=== PATIENT | male | born 2000 | race Caucasian/White ===

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

== ENCOUNTER 2018-09-10 17:45 | Emergency (ER) | payer OTHER ==
[2018-09-10 18:05] VITALS: BP 123/67
--- NOTE | 2018-09-10 19:33 | UC ---
Cardiac HPI - HPI Summary HPI Summary: 18-year-old male comes to clinic today with a chief complaint of left sided chest pain. Pain is worse when he takes deep breath or coughs. Pain started after he went running 2 days ago. After he was running he coughed up quite a bit of sputum. Sputum was white. No fevers or chills. He is a smoker. Not short of breath at rest. No calf pain or swelling. No history of blood clots or any family history of blood clots. No known trauma. No rash. - History of Current Complaint Chief Complaint: UCBackPain Stated Complaint: BACK PAIN Time Seen by Provider: 09/10/18 18:21 Pain Intensity: 8 - Allergy/Home Medications Allergies/Adverse Reactions: Allergies Allergy/AdvReac Type Severity Reaction Status Date / Time No Known Allergies Allergy Verified 09/10/18 18:05 PMH/Surg Hx/FS Hx/Imm Hx Previously Healthy: Yes - Surgical History Surgical History: None - Family History Known Family History: Positive: None - Social History Alcohol Use: Occasionally Substance Use Type: Marijuana Substance Use Comment - Amount & Last Used: daily, "smoking a lot the last few weeks" Smoking Status (MU): Light Every Day Tobacco Smoker Type: Cigarettes Review of Systems Constitutional: Negative Skin: Negative Eyes: Negative ENT: Negative Respiratory: Negative Cardiovascular: Chest Pain - SEE HPI Gastrointestinal: Negative Motor: Negative Neurovascular: Negative Musculoskeletal: Negative Neurological: Negative Psychological: Negative Is Patient Immunocompromised?: No All Other Systems Reviewed And Are Negative: Yes Physical Exam Triage Information Reviewed: Yes Appearance: Well-Appearing, No Pain Distress, Well-Nourished Vital Signs: Initial Vital Signs Temp 98.0 F 09/10/18 17:59 Pulse 74 09/10/18 17:59 Resp 14 09/10/18 17:59 BP 123/67 09/10/18 17:59 Pulse Ox 98 09/10/18 17:59 Vital Signs Reviewed: Yes Eye Exam: Normal Eyes: Positive: Conjunctiva Clear Neck exam: Normal Neck: Positive: Supple Respiratory: Positive: Lungs clear, Normal breath sounds, No respiratory distress, Other: - Normal breath sounds both sides. Tender to palpation left lateral ribs. There is no rash. Cardiovascular: Positive: RRR Abdominal Exam: Normal Abdomen Description: Positive: Nontender, Soft. Negative: CVA Tenderness (R), CVA Tenderness (L) Bowel Sounds: Positive: Present Musculoskeletal Exam: Normal Musculoskeletal: Positive: Strength Intact, ROM Intact, No Edema, Other: - NO CALF TENDERNESS TO PALPATION Neurological Exam: Normal Neurological: Positive: Alert, Muscle Tone Normal Psychological Exam: Normal Psychological: Positive: Age Appropriate Behavior Skin Exam: Normal - Assessment/Plan Course Of Treatment: Review the x-ray with the patient. I did not see any acute process on the x-ray no pneumothorax. Radiologist reading is pending. The pain is pleuritic. It's most probably chest wall pain although it could be pleurisy. Patient is low risk for pulmonary embolus he has no pedal edema or calf tenderness. I did discuss the possible diagnosis of pulmonary embolus and that if he did not improve with treatment of ibuprofen that he needed to get re- checked. We will also treat him with azithromycin as he is a daily smoker. - Clinical Impression Provider Diagnoses: CHEST PAIN Discharge - Sign-Out/Discharge Documenting (check all that apply): Patient Departure All imaging exams completed and their final reports reviewed: No - Discharge Plan Condition: Stable Disposition: HOME Prescriptions: Azithromyxin PATIENCE (NF) [Z-Patience (Zithromax) 250 mg tabs #6] 2 tab PO .TODAY, THEN 1 DAILY #6 tab Ibuprofen TAB* [Motrin TAB* 600 MG] 600 mg PO Q6H PRN #20 tab PRN Reason: Pain Patient Education Materials: Chest Pain (ED) Referrals: [facility] [Outside] Additional Instructions: FOLLOW UP WITH YOUR DOCTOR IF NOT COMPLETELY IMPROVED. GO TO THE EMERGENCY DEPARTMENT FOR ANY WORSENING OF YOUR CONDITION; PAIN, SHORTNESS OF BREATH, YOU FEEL ILL OR QUESTIONS OR CONCERNS. - Billing Disposition and Condition Condition: STABLE Disposition: Home
[2018-09-10] MEDS ORDERED: Ibuprofen TAB* 600 MG PO ONE (19:35)
--- NOTE | 2018-09-11 07:56 | RAD ---
HISTORY: LEFT SIDE SPLINTING CHEST PAIN COMPARISONS: None VIEWS: 4: Frontal dual-energy and lateral views of the chest. FINDINGS: CARDIOMEDIASTINAL SILHOUETTE: The cardiomediastinal silhouette is normal. FRANSICO: The fransico are normal. PLEURA: The costophrenic angles are sharp. No pleural abnormalities are noted. LUNG PARENCHYMA: The lungs are clear. ABDOMEN: The upper abdomen is clear. There is no subphrenic gas. BONES AND SOFT TISSUES: No bone or soft tissue abnormalities are noted. OTHER: None. IMPRESSION: NO ACTIVE CARDIOPULMONARY DISEASE. R0
== END 2018-09-10 19:55 | disposition home or self-care (01) ==
LOC: UCEAST 17:45
DX: R07.89 Other chest pain (principal); F17.210 Nicotine dependence, cigarettes, uncomplicated
CPT/HCPCS: 71046; 99212; A9270-GY; G0463

== ENCOUNTER 2019-08-26 19:25 | Emergency (ER) | payer OTHER | END 2019-08-26 20:00 | disposition left against medical advice (07) | LOC: UCEAST 19:25 | DX: Z53.21 Procedure and treatment not carried out due to patient leaving prior to being seen by health care provider (principal) ==

== ENCOUNTER 2020-02-03 12:05 | Inpatient (IN) | payer OTHER ==
--- NOTE | 2020-02-03 12:10 | ED ---
Psychiatric Complaint - HPI Summary HPI Summary: 19 y/o M brought in by law enforcement on after having an argument with his biological father today. Patient lives with his father. They got into an argument today and patient started having homicidal ideation per nurse. He has never been here before for psychiatric evaluation. He denies PMHx. Medications reviewed. FHx manic depression. No FHx hypertension, diabetes, cardiac disease. Current smoker. Admits to ETOH and recreational drug use but he reports less now than in the past. - History Of Current Complaint Time Seen by Provider: 02/03/20 12:07 Hx Obtained From: Patient Onset/Duration: Lasting Hours, Still Present Timing: Constant Aggravating Factor(s): Nothing Alleviating Factor(s): Nothing Has Homicidal: Reports: Thoughts - Allergies/Home Medications Allergies/Adverse Reactions: Allergies Allergy/AdvReac Type Severity Reaction Status Date / Time No Known Allergies Allergy Verified 09/10/18 18:05 Home Medications: Home Medications NK [No Home Medications Reported] 02/03/20 [History Confirmed 02/03/20] PMH/Surg Hx/FS Hx/Imm Hx Endocrine/Hematology History: Denies: Hx Diabetes Cardiovascular History: Denies: Hx Hypertension Respiratory History: Denies: Hx Asthma, Hx Chronic Obstructive Pulmonary Disease (COPD) - Surgical History Surgical History: None Infectious Disease History: Denies: Hx Hepatitis, History Other Infectious Disease - Family History Known Family History: Positive: Other - manic depression Negative: Cardiac Disease, Hypertension, Diabetes - Social History Alcohol Use: Occasionally Hx Substance Use: Yes Substance Use Type: Reports: Marijuana Hx Tobacco Use: Yes Smoking Status (MU): Light Every Day Tobacco Smoker Type: Cigarettes Review of Systems Negative: Fever Positive: Other - HI All Other Systems Reviewed And Are Negative: Yes Physical Exam - Summary Physical Exam Summary: General: Well appearing, no distress HEENT: PERRL Cardiovascular: Skin is well perfused Pulmonary: No respiratory distress, no tachypnea Abdomen: Non-distended Skin: Warm, pink, dry MSK: No edema Psych: Normal affect Neuro: A&Ox3 Triage Information Reviewed: Yes Vital Signs Reviewed: Yes Procedures - Sedation Patient Received Moderate/Deep Sedation with Procedure: No Diagnostics - Laboratory Result Diagrams: 02/03/20 13:37 02/03/20 13:37 Lab Statement: Any lab studies that have been ordered have been reviewed, and results considered in the medical decision making process. Re-Evaluation - Re-Evaluation First Eval Re-Evaluation Time: 12:14 - patient is medically cleared for psychiatric evaluation Course/Dx - Course Course Of Treatment: Patient taking for mental health clearance for HI. Patient has no active medical conditions warrantly further w/u, vital signs are stable. Patient placed in mental health gown and placed on observation. We' ll obtain mental health evaluation. - Differential Dx/Clinical Impression Provider Diagnosis: Psychosis - Physician Notifications Discussed Care Of Patient With: Sawyer Bhatia - Recommends admission Time Discussed With Above Provider: 15:05 Instructed by Provider To: Admit As Inpatient Discharge ED - Sign-Out/Discharge Documenting (check all that apply): Patient Departure - Discharge Plan Condition: Stable Disposition: [facility]YCHIATRIC FACILITY-[facility] [place] Referrals: No Primary Care Phys,[facility] [Medical Doctor] - - Billing Disposition and Condition Condition: STABLE Disposition: Psychiatric Facility [facility] - Attestation Statements Document Initiated by Scribe: Yes Documenting Scribe: Alannah Miguel Provider For Whom Stephan is Documenting (Include Credential): Kendrick Aguilar MD Scribe Attestation: Alannah Rojas, scribed for Kendrick Aguilar MD on 02/03/20 at 1510. Scribe Documentation Reviewed: Yes Provider Attestation: The documentation as recorded by the Alannah dunbar accurately reflects the service I personally performed and the decisions made by Kendrick serna MD Status of Scribe Document: Viewed
[2020-02-03 13:56] LABS: ABS Eosinophils 0.1 10^3/ul (0-0.6); ABS Lymphocytes 1.9 10^3/ul (1.0-4.8); ABS Monocytes 0.6 10^3/ul (0-0.8); ABS Neutrophils 4.2 10^3/ul (1.5-7.7); Eosinophil % 1.1 %; Hematocrit 50 % (42-52); Hemoglobin 17.1 g/dL (14.0-18.0); Lymphocyte % 27.5 %; Mean Corpuscular HGB Conc 34 g/dL (31-36); Mean Corpuscular Hemoglobin 32 pg (27-31); Mean Corpuscular Volume 93 fL (80-94); Mean Platelet Volume 6.6 fL (7.4-10.4); Nucleated Red Blood Cells % 0.1; Platelet Count 309 10^3/uL (150-450); Red Blood Count 5.32 10^6 /uL (4.18-5.48); Red Cell Distribution Width 13 % (10-15); White Blood Count 6.7 10^3/uL (3.5-10.8)
[2020-02-03 14:11] LABS: ALT 14 U/L (7-52); AST 25 U/L (13-39); Albumin 5.3 g/dL (3.2-5.2); Albumin/Globulin Ratio 1.8 (1-3); Alkaline Phosphatase 91 U/L (34-104); Anion Gap 9 mmol/L (2-11); BUN/Creatinine Ratio 11.7 (8-20); Blood Urea Nitrogen 12 mg/dL (6-24); CO2 Carbon Dioxide 26 mmol/L (22-32); Calcium 10.4 mg/dL (8.6-10.3); Chloride 101 mmol/L (101-111); EGFR African American 110.3 (>60); EGFR Non-African American 91.2 (>60); Globulin 2.9 g/dL (2-4); Glucose 91 mg/dL (70-100); Potassium 3.9 mmol/L (3.5-5.0); Sodium 136 mmol/L (135-145); Total Protein 8.2 g/dL (6.4-8.9)
[2020-02-03 14:22] LABS: Acetaminophen < 15 mcg/mL; Alcohol < 10 mg/dL (<10); Salicylate < 2.50 mg/dL (<30)
[2020-02-03 14:38] LABS: TSH (Thyroid Stimulating Horm) 2.37 mcIU/mL (0.34-5.60)
[2020-02-03 15:05] LABS: Urine Appearance Clear; Urine Bilirubin Negative (Negative); Urine Blood 1+ (Negative); Urine Color Yellow; Urine Glucose Negative (Negative); Urine Ketones 1+ (Negative); Urine Nitrite Negative (Negative); Urine Protein Negative (Negative); Urine Urobilinogen Negative (Negative)
[2020-02-03 15:07] LABS: Urine Bacteria Absent (Absent); Urine Red Blood Cell 1+(3-5/hpf) (Absent); Urine Squamous Epithelial Cell Present (Absent); Urine White Blood Cell Absent (Absent)
[2020-02-03 15:16] LABS: Urine Benzodiazepine Screen None Detected (None Detect); Urine Opiates Screen None Detected (None Detect)
[2020-02-03] MEDS ORDERED: Al Hydrox/Mg Hydrox/Simet LIQ* 30 ML UDC PO PRN (17:36)
[2020-02-03] MEDS ORDERED: Acetaminophen TAB* 325 MG PO PRN (17:36)
[2020-02-03] MEDS ORDERED: Nicotine* 2MG (FRUIT FLAVOR) GUM PO PRN (17:39)
[2020-02-03] MEDS ORDERED: chlorproMAZINE TAB* 50 MG PO PRN (18:41)
[2020-02-04] MEDS: Nicotine Patch Removal NOTE PATCH OFF SCH (00:11)
--- NOTE | 2020-02-04 09:48 | HP ---
H&P (Free Text) History and Physical: Justification for admission: Immediate Safety. CC " People are messing with me" The patient was brought to [facility] by police after he got into an argument with his father and expressed homicidal ideation. The patient reported that he wants to hurt people that are against him and made threats to kill his father. He reported that his father has been messing with him and putting things in his gas tank and when he went to work people all turned against him. He expressed that he wanted to fight them for messing with him. He called the police and asked police to fingerprint the gas tank to find out who is messing with him. He expressed that if he doesnt leave the hospital his father will rape young girls. He reported last methamphetamine use to be on Saturday. He reported that his father is a criminal and messes with his head. He reported that the government is purposely planing to sabotaged him and spoke about everything he does the government wants to get involved and make things up about him. Patient expressed that he refuses to take medications because they will mess with his head and he wont be able to control himself. He said that the only that helps him is snorting methamphetamine. Per his father the patient started to show bizarre behavioral changes since Saturday and has stayed up calling people in the middle at night and missed several days of work. He denied access to firearms or stockpiles of medications. He denied changes in his sleep or appetite. The patient denied suicidal ideation intent or plan. The patient denied visual hallucinations. He reported hearing voices that people were against him and he noted that this was his own internal dialogue. He denied having intrusive thoughts, having sexual urges or arousal surrounding young children. Psychosis Patient endorsed hearing things that other people do not hear. He believes others are out to get him and playing tricks on him. He expressed that he will attack people that are against him and put things in his gas tank and because there was duct tape near his tire he believes that someone dismantled his car because there are against him. Depression He denied feeling depressed. Denied having diminished interests which were found to be enjoyable in the past. Denied having crying spells , feeling empty inside, feelings of hopelessness , and worthlessness. Denied unintentional weight loss and appetite. Denied interruption of sleep , or feeling tired throughout the day. Denied loss of energy or lack of motivation to complete tasks. Denied overwhelming feelings of guilt or decreased concentration. Denied recurrent thoughts of . Denied thoughts that they would be better off . Anxiety Denied having symptoms of anxiety such as having times where heart feels that it is beating out of chest , sweaty palms, or shallow breathing. Denied having uncomfortable or intrusive thoughts. Denied feeling restless, high strung, or worrying too much most of the time. Bipolar Denied symptoms of rolo such as having many ideas at once. Denied increased talkativeness where no one can interrupt. Denied feeling irritable most of the time while having an persistent abundance of energy most of the day without the use of energy drinks, stimulants, or recreational drug use. Denied an increase in intensity in goal directed activities. Denied having the decreased need to sleep for days , having prolonged elevated mood , or feeling on top of the world. Denied impulsive risky sexual encounters. Denied spending money recklessly , going on spending sprees wiping out savings. Denied impulsively traveling out of town or country, having super cobb, and unrealistic wealth or fame. Phobias: Patient denied having excessive fear of a particular thing or situation. Eating disorders: Patient denied having excessive eating habits or feelings of guilt after eating. Denied repeated episodes of self induced vomiting after eating. PTSD Denied flashbacks, nightmares and avoidance of a prior traumatic event. PAST PSYCHIATRIC HISTORY: Prior Diagnosis : Stimulant use disorder amphetamine type , Tobacco use disorder. History of past Psychiatric Hospitalizations: Denied prior psychiatric admission. History of past suicide/homicide attempts : 1 past suicide attempt at age 12 where he attempting to shoot himself, denied repeated self injurious behavior. He denied having a history of assaulting others and father confirmed this. Outpatient follow-up: [facility] Medications: He denied past trials of medications Guardianship: None. FAMILY HISTORY: - Suicide: Denied family history of suicide. - Mental illness: Step- Brother has schizophrenia - Substance abuse: Denied substance abuse among family members. SUBSTANCE ABUSE HISTORY: - EtOH: Denied recent use. - Tobacco: Smokes 3 cigarettes a day - Cannabis: Uses occasionally, reported last use was one week ago - Heroin: Denied - Cocaine: Denied - Methamphetamine started using at age 12 preferred route via intranasal. Per patient he uses twice a week and last use was on Saturday. - Substance abuse treatment: Currently on probation and in [facility]. SOCIAL HISTORY: - Denied a history of childhood physical and or sexual abuse Born in [place] and raised by both parents. Parents a year ago and his mother lives in [place]. 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 - Relationship: Single and has no children. - Legal history: Currently on probation for charges involving sex with a minor currently has a ankle monitor. - service history: Denied PAST MEDICAL HISTORY: Denied heart disease, diabetes, cancer and/ or other medical conditions. - Allergies: Denied drug or other allergies. Physical Exam: Please see ED note Mental Status Exam on Admission APPEARANCE : 19 year old who appears stated age. Patient appears to have poor hygiene and grooming. BEHAVIOR: Irritable EYE CONTACT: Fair PSYCHOMOTOR ACTIVITY: No psychomotor agitation or retardation. MOVEMENTS: No abnormal movements observed. SPEECH : Normal rate, rhythm, volume and tone. MOOD : "Mad " AFFECT : Type is angry Range is restricted Mood Incongruent THOUGHT PROCESS: Formulated and organized in a linear manner. THOUGHT CONTENT: Paranoid delusions PERCEPTION: Auditory hallucinations. SUICIDALITY Denied suicidal ideation, intent or plan. HOMICIDALITY Homicidal ideation with intent to kill his father. Insight/judgment: Poor insight and judgment ORIENTATION: Oriented to self, location, and time. Diagnosis on Admission: Unspecified Psychosis, Stimulant use disorder amphetamine type , Tobacco use disorder. Assessment: 19 year old male with a history of methamphetamine abuse presented to the emergency department by police paranoid with homicidal ideation toward his father. Plan #Admit to [facility], Q15 minute observation. Start regular diet. Encourage participation in group therapy and psychoeducation #Patient evaluated in ED and was determined by the emergency room Physician to be medically fit for admission to the [facility]. # Justification for Admission: For immediate safety per outlined in the [place] Mental Hygiene Code. # The patient requires psychiatric inpatient admission at this time to assure safety, receive treatment and work toward stabilization. # Labs ordered: CBC, CMP, UDS, TSH, HBA1c, TSH, Toxicology screen, Urine analysis, and lipid profile. # Plan to monitor for metabolic changes by weight, HBA1c, glucose, and lipid panel # EKG ordered for risk of QT prolongation of antipsychotic medication. # Will offer and order zyprexa 10mg qhs. # Obtained collateral information from his father Grabiel [phone], confirmed no access to firearms # Collaboration with [employer] Zakiya Fonseca # Father informed of homicidal threat. # Additional substance Abuse resources offered and declined Tobacco use disorder: nicotine supplement offered and put in place. #Goals before discharge include: Psychiatric Stabilization Tentative Discharge: Pending hospital course and response to treatment The risks, benefits, and alternative treatment options were discussed as well as the risks of refusing treatment. After this discussion and an acknowledgement of this understanding was made. A risk/ benefit assessment of treatment was considered and discussed with the patient. When comparing the risks of treatment with the dangers of not receiving treatment, the benefits of treatment outweigh the treatment risks at this time. Risks of , allergy, suicidal ideation, behavioral changes, dystonia, electrolyte imbalances, movement disorders, cardiac conduction changes, metabolic risks and NMS were among some of the risks discussed. Sodium 136 mmol/L (135-145) 02/03/20 13:37 Potassium 3.9 mmol/L (3.5-5.0) 02/03/20 13:37 BUN 12 mg/dL (6-24) 02/03/20 13:37 Creatinine 1.03 mg/dL (0.67-1.17) 02/03/20 13:37 Calcium 10.4 mg/dL (8.6-10.3) H 02/03/20 13:37 AST 25 U/L (13-39) 02/03/20 13:37 ALT 14 U/L (7-52) 02/03/20 13:37 Acetaminophen (Tylenol Tab*) 650 mg PO Q4H PRN PRN Reason: PAIN or TEMP > 101 F Al Hydrox/Mg Hydrox/Simethicone (Maalox Plus*) 30 ml PO Q4H PRN PRN Reason: INDIGESTION Chlorpromazine HCl (Thorazine Tab*) 50 mg PO Q6H PRN PRN Reason: AGITATION Multivitamins (Theragran Tab*) 1 tab PO DAILY [facility] Last Admin: 02/04/20 11:09 Dose: Not Given Nicotine (Nicotine Patch 21 Mg/24 Hr*) 1 patch TRANSDERM DAILY [facility] Last Admin: 02/04/20 11:51 Dose: Not Given Nicotine Polacrilex (Nicotine Gum*) 2 mg PO Q2H PRN PRN Reason: CRAVINGS Olanzapine (Zyprexa Tab*) 10 mg PO BEDTIME [facility] Pharmacy Profile Note (Nicotine Patch Removal Note*) 1 note PATCH OFF 2099 [facility] Last Admin: 02/04/20 00:11 Dose: Not Given
[2020-02-04] MEDS: Vitamin THERAPEUTIC TAB PO SCH (11:09)
[2020-02-04] MEDS: Nicotine PATCH 21 MG/24 HR* PATCH TRANSDERM SCH (11:51)
[2020-02-05] MEDS: OLANzapine TAB* 10 MG PO SCH (00:43)
[2020-02-05] MEDS: Nicotine Patch Removal NOTE PATCH OFF SCH ×2 (00:43→22:05)
[2020-02-05] MEDS ORDERED: chlorproMAZINE TAB* 100 MG ONE ×2 (09:01→10:00)
[2020-02-05] MEDS: Vitamin THERAPEUTIC TAB PO SCH (09:17)
[2020-02-05] MEDS: Nicotine PATCH 21 MG/24 HR* PATCH TRANSDERM SCH (09:17)
[2020-02-05] MEDS ORDERED: chlorproMAZINE INJ* 25 MG/ML 2 ML (50 MG) ONE (10:00)
[2020-02-05] MEDS ORDERED: chlorproMAZINE INJ* 25 MG/ML 2 ML (50 MG) IM ONE (10:00)
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
[2020-02-06] MEDS: Nicotine PATCH 21 MG/24 HR* PATCH TRANSDERM SCH (10:03)
[2020-02-06] MEDS: Vitamin THERAPEUTIC TAB PO SCH (10:03)
--- NOTE | 2020-02-06 16:43 | PN ---
Subjective - Subjective Service Type: 45063 Hosp care 25 min moderate complexity Subjective: The patient a 19 year old male with history of Methamphetamine use disorder and homicidal ideation towards his father. He is seen today for medication management and follow up. He described his mood as good. He denied hopelessness and worthlessness. He denied current suicidal or homicidal ideation. No evidence of delusions or psychosis. He appears to be less paranoid.No behavioral issues. He is continued on [id number] observation. He is compliant with medications. No constipations.The patient punched the wall yesterday, he was supposed to have had an x-rayof the hand but was not done. Today he denied any pain in the right hand and there was on swelling or restriction in movement of the right hand. The patient does not have acute medical problems. Objective - General Observations Appearance: Well Groomed Appears Stated Age: Yes Stature: WNL Posture: WNL Eye Contact: Average Behavior/Activity: WNL - Interaction Observations Attitude Towards Examiner: Cooperative Stated Mood: Euthymic Speech Pattern/Tone: Appropriate Thought Process: Coherent Perception: WNL Thought Content: WNL Hallucination Type: None Delusion Type: None - Cognitive Function Orientation: A&O x 4 Cognition: WNL Estimated Intelligence: Normal Insight: WNL Judgment Within Normal Limits: Yes - Medication Compliance Cooperative with Inpatient Medication Regimen: Yes - Group Participation Participates in Group Activities: No - He denied current suicidal or homicdal ideation Assessment - Assessment Clinical Impression: 19 year old male with a history of methamphetamine abuse presented to the emergency department by police paranoid with homicidal ideation toward his father. BSU: Problem List - Patient Problems (1) Methamphetamine-induced psychotic disorder Current Visit: Yes Status: Acute Code(s): F15.959 - OTH STIMULANT USE, UNSP W STIM-INDUCE PSYCH DISORDER, UNSP SNOMED Code(s): 78990213432112022 Plan - Plan Treatment Plan: Name: YULIANA SEAMAN Birthdate: 2000 [id number] #Q15 minute observation. # The patient requires psychiatric inpatient admission at this time to assure safety, receive treatment and work toward stabilization. # Patient is refusing proposed treatment of zyprexa 10mg qhs. # Obtained collateral information from his father Grabiel [phone], confirmed no access to firearms # Collaboration with Sm[employer] Zakiya Fonseca # TOO will be completed #Safe ACT completed # X-ray right hand from punching wall # Additional substance Abuse resources offered and declined Tobacco use disorder: nicotine supplement offered and put in place. #Goals before discharge include: Psychiatric Stabilization Medications: Current Medications Acetaminophen (Tylenol Tab*) 650 mg PO Q4H PRN PRN Reason: PAIN or TEMP > 101 F Al Hydrox/Mg Hydrox/Simethicone (Maalox Plus*) 30 ml PO Q4H PRN PRN Reason: INDIGESTION Chlorpromazine HCl (Thorazine Tab*) 50 mg PO Q6H PRN PRN Reason: AGITATION Multivitamins (Theragran Tab*) 1 tab PO DAILY [facility] Last Admin: 02/06/20 10:03 Dose: Not Given Nicotine (Nicotine Patch 21 Mg/24 Hr*) 1 patch TRANSDERM DAILY [facility] Last Admin: 02/06/20 10:03 Dose: Not Given Nicotine Polacrilex (Nicotine Gum*) 2 mg PO Q2H PRN PRN Reason: CRAVINGS Olanzapine (Zyprexa Tab*) 10 mg PO BEDTIME [facility] Last Admin: 02/06/20 00:00 Dose: Not Given Pharmacy Profile Note (Nicotine Patch Removal Note*) 1 note PATCH OFF 2100 [facility] Last Admin: 02/05/20 22:05 Dose: Not Given - Discharge Plan Additional Comments: Plan Continue current medication management
[2020-02-06] MEDS: Nicotine Patch Removal NOTE PATCH OFF SCH (21:00)
[2020-02-06] MEDS: OLANzapine TAB* 10 MG PO SCH ×2 (22:46)
[2020-02-07] MEDS: Nicotine PATCH 21 MG/24 HR* PATCH TRANSDERM SCH (08:36)
[2020-02-07] MEDS: Vitamin THERAPEUTIC TAB PO SCH (08:36)
[2020-02-07] MEDS: OLANzapine TAB* 10 MG PO SCH (22:23)
[2020-02-07] MEDS: Nicotine Patch Removal NOTE PATCH OFF SCH (22:24)
[2020-02-08] MEDS: Nicotine PATCH 21 MG/24 HR* PATCH TRANSDERM SCH (10:36)
[2020-02-08] MEDS: Vitamin THERAPEUTIC TAB PO SCH (10:37)
--- NOTE | 2020-02-08 10:44 | PN ---
Subjective - Subjective Date of Service: 02/08/20 Service Type: [id number] Hosp care 35 min high complexity Subjective: Nursing Report: Patient was visible on unit, no behavioral incidents. Slept ~ 6hrs overnight. He is attending some group activities. CC: " I was not in my right mind" This patient was seen and evaluated today. He reported he was not thinking right last Saturday and expressed that he said and did things he would not have done. He denied feeling that people were following him or out to get him. Took medications overnight. He reported having adequate appetite and sleep. The patient reports attending day groups. Per nursing no behavioral issues or overnight events reported. Patient reported that he is tolerating medications without side effects. Objective - General Observations Appearance: Neat Appears Stated Age: Yes Stature: WNL Posture: WNL Eye Contact: Average Behavior/Activity: WNL - Interaction Observations Attitude Towards Examiner: Cooperative Stated Mood: Euthymic Affect: Restricted Speech Pattern/Tone: Normal Volume Thought Process: Goal Directed Perception: WNL Thought Content: WNL Hallucination Type: None Delusion Type: None - Cognitive Function Orientation: A&O x 4 Level of Consciousness: Awake - Medication Compliance Cooperative with Inpatient Medication Regimen: Yes - Group Participation Participates in Group Activities: Partial Assessment - Assessment Merits Inpatient Hospitalization: For Immediate Safety Clinical Impression: 19 year old male with a history of methamphetamine abuse presented to the emergency department by police paranoid with homicidal ideation toward his father. Plan - Plan Treatment Plan: Name: YULIANA SEAMAN Birthdate: 2000 [id number] #Q15 minute observation. # The patient requires psychiatric inpatient admission at this time to assure safety, receive treatment and work toward stabilization. # Patient is refusing proposed treatment of zyprexa 10mg qhs. # Obtained collateral information from his father Grabiel [phone], confirmed no access to firearms # Collaboration with [employer] Zakiya Fonseca # TOO will be completed #Safe ACT completed # Additional substance Abuse resources offered and declined Tobacco use disorder: nicotine supplement offered and put in place. #Goals before discharge include: Psychiatric Stabilization # Tentative discharge - Saturday Continued Medication Management: Continue Outpt Medication Medications: Current Medications Acetaminophen (Tylenol Tab*) 650 mg PO Q4H PRN PRN Reason: PAIN or TEMP > 101 F Al Hydrox/Mg Hydrox/Simethicone (Maalox Plus*) 30 ml PO Q4H PRN PRN Reason: INDIGESTION Chlorpromazine HCl (Thorazine Tab*) 50 mg PO Q6H PRN PRN Reason: AGITATION Multivitamins (Theragran Tab*) 1 tab PO DAILY [facility] Last Admin: 02/08/20 10:37 Dose: Not Given Nicotine (Nicotine Patch 21 Mg/24 Hr*) 1 patch TRANSDERM DAILY [facility] Last Admin: 02/08/20 10:36 Dose: Not Given Nicotine Polacrilex (Nicotine Gum*) 2 mg PO Q2H PRN PRN Reason: CRAVINGS Olanzapine (Zyprexa Tab*) 10 mg PO BEDTIME [facility] Last Admin: 02/07/20 22:23 Dose: 10 mg Pharmacy Profile Note (Nicotine Patch Removal Note*) 1 note PATCH OFF 2100 [facility] Last Admin: 02/07/20 22:24 Dose: Not Given - Discharge Plan Discharge Plan: Inpatient Hospitalization
[2020-02-08] MEDS: OLANzapine TAB* 10 MG PO SCH (19:49)
[2020-02-08] MEDS: Nicotine Patch Removal NOTE PATCH OFF SCH (22:17)
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
[2020-02-09 10:46] VITALS: BP 102/76
[2020-02-09] MEDS: Vitamin THERAPEUTIC TAB PO SCH (13:30)
[2020-02-09] MEDS: Nicotine PATCH 21 MG/24 HR* PATCH TRANSDERM SCH (13:30)
== END 2020-02-09 13:15 | disposition home or self-care (01) | DRG 751 ==
LOC: ED 12:05 → BSU 17:30
PROVIDERS: ADMIT Psychiatry & Neurology Psychiatry; ATTEND Psychiatry & Neurology Psychiatry
DX: F23 Brief psychotic disorder (principal); F15.90 Other stimulant use, unspecified, uncomplicated; F17.210 Nicotine dependence, cigarettes, uncomplicated; R45.850 Homicidal ideations
CPT/HCPCS: 36415; 80053; 80307; 80320; 80329; 81003; 81015; 84443; 85025; 99222; 99232; 99233; 99284; A9270-GY; G0480

== ENCOUNTER 2022-03-29 13:46 | Inpatient (IN) ==
[2022-03-29 14:50] LABS: Urine Appearance Clear; Urine Bilirubin Negative (Negative); Urine Blood 1+ (Negative); Urine Color Amber; Urine Glucose Negative (Negative); Urine Ketones Negative (Negative); Urine Nitrite Negative (Negative); Urine Protein 2+(100 mg/dL) (Negative); Urine Urobilinogen Negative (Negative)
[2022-03-29 14:56] LABS: ABS Eosinophils 0.3 10^3/ul (0-0.6); ABS Lymphocytes 1.7 10^3/ul (1.0-4.8); ABS Monocytes 0.5 10^3/ul (0-0.8); ABS Neutrophils 2.5 10^3/ul (1.5-7.7); Eosinophil % 5.4 %; Hematocrit 45 % (42-52); Hemoglobin 15.5 g/dL (14.0-18.0); Lymphocyte % 34.5 %; Mean Corpuscular HGB Conc 34 g/dL (31-36); Mean Corpuscular Hemoglobin 32 pg (27-31); Mean Corpuscular Volume 92 fL (80-94); Mean Platelet Volume 6.5 fL (7.4-10.4); Nucleated Red Blood Cells % 0.1; Platelet Count 288 10^3/uL (150-450); Red Blood Count 4.88 10^6 /uL (4.18-5.48); Red Cell Distribution Width 13 % (10-15); White Blood Count 4.9 10^3/uL (3.5-10.8)
[2022-03-29 14:56] LABS: Urine Bacteria Absent (Absent); Urine Red Blood Cell 2+(6-10/hpf) (Absent); Urine White Blood Cell Absent (Absent)
[2022-03-29 15:33] LABS: Urine Benzodiazepine Screen None Detected (None Detect); Urine Cannabinoids Screen Presumptive Positive (None Detect); Urine Opiates Screen None Detected (None Detect)
[2022-03-29 16:22] LABS: ALT 16 U/L (7-52); AST 26 U/L (13-39); Acetaminophen < 15 mcg/mL; Albumin 4.9 g/dL (3.2-5.2); Albumin/Globulin Ratio 1.9 (1-3); Alcohol, S < 13 mg/dL (<13); Alkaline Phosphatase 72 U/L (35-149); Anion Gap 5 mmol/L (2-11); Blood Urea Nitrogen 12 mg/dL (6-24); CO2 Carbon Dioxide 29 mmol/L (22-32); Calcium 9.7 mg/dL (8.6-10.3); Chloride 105 mmol/L (101-111); Globulin 2.6 g/dL (2-4); Glucose 88 mg/dL (70-100); Potassium 4.3 mmol/L (3.5-5.0); Salicylate < 2.50 mg/dL (<30); Sodium 139 mmol/L (135-145); Total Protein 7.5 g/dL (6.4-8.9); eGFR CKD-EPI 95.7 (>60)
[2022-03-29 16:30] LABS: TSH Ultra Thyroid Stim Horm 0.84 mcIU/mL (0.34-5.60)
[2022-03-29] MEDS ORDERED: Haloperidol 5 mg/ml SDV IV/IM 5 MG/ML AMP IM ONE (18:55)
[2022-03-29] MEDS ORDERED: diazePAM INJ CARPUJECT 5 MG/ML SYRINGE IM ONE (18:55)
[2022-03-29] MEDS ORDERED: Al Hydrox/Mg Hydrox/Simet LIQ 30 ML UDC PO PRN (22:57)
[2022-03-29] MEDS ORDERED: risperiDONE-M 1 mg Oradis TAB PO PRN (22:58)
[2022-03-30 08:31] LABS: HDL Cholesterol 55.2 mg/dL
[2022-03-30] MEDS ORDERED: Nicotine GUM 4MG FRUIT FLAVOR PO PRN (08:50)
[2022-03-30] MEDS: Vitamin THERAPEUTIC TAB PO SCH (12:55)
[2022-03-30] MEDS: Nicotine PATCH 21 MG/24 HR PATCH TRANSDERM SCH (14:14)
[2022-03-31] MEDS: Nicotine PATCH 21 MG/24 HR PATCH TRANSDERM SCH (10:04)
[2022-03-31] MEDS: Vitamin THERAPEUTIC TAB PO SCH (10:04)
[2022-04-01] MEDS: Nicotine PATCH 21 MG/24 HR PATCH TRANSDERM SCH (10:10)
[2022-04-01] MEDS: Vitamin THERAPEUTIC TAB PO SCH (10:10)
[2022-04-02] MEDS: Vitamin THERAPEUTIC TAB PO SCH (10:55)
[2022-04-02] MEDS: Nicotine PATCH 21 MG/24 HR PATCH TRANSDERM SCH (10:55)
[2022-04-03] MEDS: Nicotine PATCH 21 MG/24 HR PATCH TRANSDERM SCH (10:31)
[2022-04-03] MEDS: Vitamin THERAPEUTIC TAB PO SCH (10:31)
[2022-04-04] MEDS: Nicotine PATCH 21 MG/24 HR PATCH TRANSDERM SCH (08:53)
[2022-04-04] MEDS: Vitamin THERAPEUTIC TAB PO SCH (08:53)
[2022-04-04 09:09] VITALS: BP 105/55
== END 2022-04-04 12:10 | disposition home or self-care (01) | DRG 776 ==
LOC: ED 13:46 → EDHOLD 22:41 → BSU 23:14
PROVIDERS: ADMIT Psychiatry & Neurology Psychiatry; ATTEND Psychiatry & Neurology Psychiatry

== ENCOUNTER 2022-04-13 15:21 | Inpatient (IN) ==
[2022-04-13 16:03] LABS: ABS Eosinophils 0.2 10^3/ul (0-0.6); ABS Lymphocytes 2.2 10^3/ul (1.0-4.8); ABS Monocytes 0.4 10^3/ul (0-0.8); ABS Neutrophils 2.3 10^3/ul (1.5-7.7); Hematocrit 41 % (42-52); Hemoglobin 13.8 g/dL (14.0-18.0); Mean Corpuscular HGB Conc 34 g/dL (31-36); Mean Corpuscular Hemoglobin 31 pg (27-31); Mean Corpuscular Volume 92 fL (80-94); Mean Platelet Volume 6.6 fL (7.4-10.4); Platelet Count 262 10^3/uL (150-450); Red Blood Count 4.41 10^6 /uL (4.18-5.48); Red Cell Distribution Width 13 % (10-15); White Blood Count 5.2 10^3/uL (3.5-10.8)
[2022-04-13 16:35] LABS: Urine Benzodiazepine Screen None Detected (None Detect); Urine Cannabinoids Screen Presumptive Positive (None Detect); Urine Opiates Screen None Detected (None Detect)
[2022-04-13 16:46] LABS: ALT 13 U/L (7-52); AST 20 U/L (13-39); Acetaminophen < 15 mcg/mL; Albumin 4.6 g/dL (3.2-5.2); Albumin/Globulin Ratio 2.2 (1-3); Alcohol, S < 13 mg/dL (<13); Alkaline Phosphatase 61 U/L (35-149); Anion Gap 4 mmol/L (2-11); Blood Urea Nitrogen 14 mg/dL (6-24); CO2 Carbon Dioxide 28 mmol/L (22-32); Calcium 9.3 mg/dL (8.6-10.3); Chloride 107 mmol/L (101-111); Globulin 2.1 g/dL (2-4); Glucose 89 mg/dL (70-100); Potassium 4.1 mmol/L (3.5-5.0); Salicylate < 2.50 mg/dL (<30); Sodium 139 mmol/L (135-145); Total Protein 6.7 g/dL (6.4-8.9); eGFR CKD-EPI 101.1 (>60)
[2022-04-13 16:59] LABS: TSH Ultra Thyroid Stim Horm 1.67 mcIU/mL (0.34-5.60)
[2022-04-13 17:02] LABS: Urine Appearance Turbid; Urine Bilirubin Negative (Negative); Urine Blood Negative (Negative); Urine Color Yellow; Urine Glucose Negative (Negative); Urine Ketones Negative (Negative); Urine Nitrite Negative (Negative); Urine Protein 1+(30 mg/dL) (Negative); Urine Specific Gravity 1.017 (1.002-1.030); Urine Urobilinogen Negative (Negative)
[2022-04-13 17:08] LABS: Urine Bacteria 1+ (Absent); Urine Red Blood Cell 1+(3-5/hpf) (Absent); Urine Renal Epithelial Cells Present (Absent); Urine White Blood Cell Absent (Absent)
[2022-04-14] MEDS ORDERED: Al Hydrox/Mg Hydrox/Simet LIQ 30 ML UDC PO PRN (00:41)
[2022-04-14] MEDS: Vitamin THERAPEUTIC TAB PO SCH (08:10)
[2022-04-14] MEDS: Nicotine PATCH 21 MG/24 HR PATCH TRANSDERM SCH (08:10)
[2022-04-14 08:36] LABS: HDL Cholesterol 60.5 mg/dL
[2022-04-15] MEDS: Nicotine PATCH 21 MG/24 HR PATCH TRANSDERM SCH (07:38)
[2022-04-15] MEDS: Vitamin THERAPEUTIC TAB PO SCH (07:38)
[2022-04-16] MEDS: Nicotine PATCH 21 MG/24 HR PATCH TRANSDERM SCH (11:18)
[2022-04-16] MEDS: Vitamin THERAPEUTIC TAB PO SCH (11:19)
[2022-04-17] MEDS: Vitamin THERAPEUTIC TAB PO SCH (09:43)
[2022-04-17] MEDS: Nicotine PATCH 21 MG/24 HR PATCH TRANSDERM SCH (09:43)
[2022-04-17] MEDS: risperiDONE-M 1 mg Oradis TAB PO SCH (21:27)
[2022-04-18] MEDS: Vitamin THERAPEUTIC TAB PO SCH (07:50)
[2022-04-18] MEDS: Nicotine PATCH 21 MG/24 HR PATCH TRANSDERM SCH (07:50)
[2022-04-18] MEDS ORDERED: risperiDONE-M 1 mg Oradis TAB PO ONE (13:49)
[2022-04-18] MEDS: risperiDONE-M 1 mg Oradis TAB PO SCH (20:09)
[2022-04-19] MEDS: Nicotine PATCH 21 MG/24 HR PATCH TRANSDERM SCH (07:28)
[2022-04-19] MEDS: Vitamin THERAPEUTIC TAB PO SCH (07:28)
[2022-04-19] MEDS ORDERED: risperiDONE-M 1 mg Oradis TAB PO SCH (21:00)
[2022-04-20] MEDS: Nicotine PATCH 21 MG/24 HR PATCH TRANSDERM SCH (09:13)
[2022-04-20] MEDS: Vitamin THERAPEUTIC TAB PO SCH (09:14)
[2022-04-21] MEDS: Vitamin THERAPEUTIC TAB PO SCH (09:14)
[2022-04-21] MEDS: Nicotine PATCH 21 MG/24 HR PATCH TRANSDERM SCH (09:14)
[2022-04-22] MEDS: Nicotine PATCH 21 MG/24 HR PATCH TRANSDERM SCH (10:15)
[2022-04-22] MEDS: Vitamin THERAPEUTIC TAB PO SCH (10:15)
[2022-04-23] MEDS: Nicotine PATCH 21 MG/24 HR PATCH TRANSDERM SCH (10:23)
[2022-04-23] MEDS: Vitamin THERAPEUTIC TAB PO SCH (10:23)
[2022-04-23] MEDS: Nicotine GUM 2MG FRUIT FLAVOR PO PRN (14:21)
[2022-04-24] MEDS: Nicotine PATCH 21 MG/24 HR PATCH TRANSDERM SCH (09:12)
[2022-04-24] MEDS: Vitamin THERAPEUTIC TAB PO SCH (09:13)
[2022-04-24] MEDS ORDERED: OLANZapine 10 mg TAB*ODT ONE (11:23)
[2022-04-24] MEDS ORDERED: OLANZapine 10 mg TAB*ODT PO ONE (11:43)
[2022-04-25] MEDS: Vitamin THERAPEUTIC TAB PO SCH (09:21)
[2022-04-25] MEDS: Nicotine PATCH 21 MG/24 HR PATCH TRANSDERM SCH (09:21)
[2022-04-25] MEDS ORDERED: OLANZapine 10 mg TAB*ODT PO PRN (10:07)
[2022-04-26] MEDS: Nicotine PATCH 21 MG/24 HR PATCH TRANSDERM SCH (08:35)
[2022-04-26] MEDS: Vitamin THERAPEUTIC TAB PO SCH (08:35)
[2022-04-26] MEDS: Nicotine GUM 2MG FRUIT FLAVOR PO PRN (11:07)
[2022-04-27] MEDS: Nicotine PATCH 21 MG/24 HR PATCH TRANSDERM SCH (09:14)
[2022-04-27] MEDS: Vitamin THERAPEUTIC TAB PO SCH (09:14)
[2022-04-28] MEDS: Vitamin THERAPEUTIC TAB PO SCH (08:43)
[2022-04-28] MEDS: Nicotine PATCH 21 MG/24 HR PATCH TRANSDERM SCH (08:44)
[2022-04-29] MEDS: Nicotine PATCH 21 MG/24 HR PATCH TRANSDERM SCH (07:19)
[2022-04-29] MEDS: Vitamin THERAPEUTIC TAB PO SCH (07:19)
[2022-04-29] MEDS: Nicotine GUM 2MG FRUIT FLAVOR PO PRN (20:19)
[2022-04-30] MEDS: Nicotine PATCH 21 MG/24 HR PATCH TRANSDERM SCH (07:30)
[2022-04-30] MEDS: Vitamin THERAPEUTIC TAB PO SCH (07:31)
[2022-04-30] MEDS: Nicotine GUM 2MG FRUIT FLAVOR PO PRN ×2 (17:59→21:01)
[2022-05-01] MEDS: Vitamin THERAPEUTIC TAB PO SCH (08:24)
[2022-05-01] MEDS: Nicotine PATCH 21 MG/24 HR PATCH TRANSDERM SCH (08:25)
[2022-05-01] MEDS: Nicotine GUM 2MG FRUIT FLAVOR PO PRN (19:59)
[2022-05-02] MEDS: Nicotine PATCH 21 MG/24 HR PATCH TRANSDERM SCH (10:25)
[2022-05-02] MEDS: Vitamin THERAPEUTIC TAB PO SCH (10:26)
[2022-05-03] MEDS: Nicotine PATCH 21 MG/24 HR PATCH TRANSDERM SCH (09:31)
[2022-05-03] MEDS: Vitamin THERAPEUTIC TAB PO SCH (09:31)
[2022-05-04] MEDS: Nicotine GUM 2MG FRUIT FLAVOR PO PRN (09:41)
[2022-05-04] MEDS: Vitamin THERAPEUTIC TAB PO SCH (09:42)
[2022-05-04] MEDS: Nicotine PATCH 21 MG/24 HR PATCH TRANSDERM SCH (10:05)
[2022-05-05] MEDS: Nicotine PATCH 21 MG/24 HR PATCH TRANSDERM SCH (09:07)
[2022-05-05] MEDS: Nicotine GUM 2MG FRUIT FLAVOR PO PRN (09:08)
[2022-05-05] MEDS: Vitamin THERAPEUTIC TAB PO SCH (09:08)
[2022-05-06] MEDS: Nicotine PATCH 21 MG/24 HR PATCH TRANSDERM SCH (08:58)
[2022-05-06] MEDS: Vitamin THERAPEUTIC TAB PO SCH (09:00)
[2022-05-07] MEDS: Nicotine PATCH 21 MG/24 HR PATCH TRANSDERM SCH (09:23)
[2022-05-07] MEDS: Vitamin THERAPEUTIC TAB PO SCH (09:23)
[2022-05-08 08:02] VITALS: BP 116/82
[2022-05-08] MEDS: Vitamin THERAPEUTIC TAB PO SCH (08:19)
[2022-05-08] MEDS: Nicotine PATCH 21 MG/24 HR PATCH TRANSDERM SCH (08:19)
== END 2022-05-08 03:15 | disposition home or self-care (01) | DRG 750 ==
LOC: ED 15:21 → BSU 22:45
PROVIDERS: ADMIT Psychiatry & Neurology Psychiatry; ATTEND Psychiatry & Neurology Psychiatry